=== PATIENT | female | born 1960 | race Caucasian/White ===

== ENCOUNTER 2017-09-05 08:49 | Emergency (ER) | payer BC ==
[2017-09-05 09:29] LABS: Absolute Lymphocytes (CBC) 2.6 K/uL (0.7-4.9); Absolute Monocytes 0.7 K/uL (0.1-1.3); Absolute Neutrophil 5.1 K/uL (1.8-8.0); Basophils % 0.7 % (0-1.3); Eosinophils % 0.7 % (0-4.4); Hematocrit 42.9 % (36.0-45.0); Lymphocytes % 30.7 % (15.3-44.8); MCH 30.3 pg (27.0-35.0); MCV 87.4 fL (80-100); MPV 7.3 fL (7.6-11.3); Monocytes % 8.1 % (3.3-12.3); RBC Red Blood Cell Count 4.91 M/uL (3.86-4.86)
--- NOTE | 2017-09-05 09:33 | RAD REPORT ---
EXAM DESCRIPTION: CT - Head Brain Wo Cont - 09/05/2017 9:19 am CLINICAL HISTORY: Left facial droop and numbness COMPARISON: None TECHNIQUE: Computed axial tomography of the head was obtained. IV contrast was not requested. All CT scans are performed using dose optimization technique as appropriate and may include automated exposure control or mA/KV adjustment according to patient size. FINDINGS: An intracranial bleed is not seen . The ventricles are normal in caliber. No extra-axial fluid collection is noted. A 5 millimeter low-density areas present within the right b jude ganglia. A smaller low-density areas present the left basal ganglia. Mild low-density within gato p and subcortical white matter likely represent ischemic changes secondary to small vessel disease Fluid within the sinuses/ mastoids is not seen. IMPRESSION: 5 millimeter low-density area within the right basal ganglia probably representing a lac unar infarction. The age is indeterminate. MRI is recommended. Small low-density area within the left basal ganglia has the appearance of an old lacunar infarction
[2017-09-05 09:43] LABS: Bicarbonate 26 mEq/L (21-31); Glucose Level 294 mg/dL (65-120); Potassium 3.9 mEq/L (3.6-5.0); Sodium Level 134 mEq/L (135-145)
[2017-09-05 09:44] LABS: BUN Blood Urea Nitrogen 9 mg/dL (6-20)
--- NOTE | 2017-09-05 10:16 | ER ---
Nurse's Notes [facility] Name: Sunni Mcdonald Age: 57 yrs Sex: Female : 1960 Arrival Date: 09/05/2017 Time: 08:50 Bed 6 Private MD: Diagnosis: Facial weakness;Possible Subacute ischemic stroke Presentation: 09/05 08:56 Presenting complaint: Patient states: L sided facial droop without decrease in ss sensation that began yesterday morning. Transition of care: patient was not received from another setting of care. Onset of symptoms was September 04, 2017. Care prior to arrival: None. 08:56 Method Of Arrival: Ambulatory ss 08:56 Acuity: NAYA 3 ss 11:29 An acute neurological deficit is present. Pre-hospital glucose is not applicable to la1 this patient. Stroke Activation: Symptom onset > 6 hours Physician: Stroke Attending; Name: ; Notified At: ; Arrived At: Physician: Chief Stroke Resident; Name: ; Notified At: ; Arrived At: Physician: Stroke Resident; Name: ; Notified At: ; Arrived At: Physician: ED Attending; Name: ; Notified At: ; Arrived At: Physician: ED Resident; Name: ; Notified At: ; Arrived At: Historical: - Allergies: 08:58 No Known Allergies; ss - Home Meds: 10:05 Lantus 61 Units at night Sub-Q soln [Active]; gabapentin 100 mg oral cap 1 caps daily la1 [Active]; Effexor Oral 150 mg daily [Active]; rosuvastatin 10 mg oral tab 1 tab once daily [Active]; venlafaxine 150 mg oral cp24 1 cap once daily [Active]; amlodipine 10 mg tab 1 tab once daily [Active]; glipizide 10 mg Oral tab 1 tab once daily [Active]; losartan 100 mg oral tab 1 tab once daily [Active]; - PMHx: 08:58 Diabetes - IDDM; High Cholesterol; ss - PSHx: 10:05 Left knee; right elbow; Cholecystectomy; Hysterectomy; la1 - Immunization history:: Adult Immunizations up to date. - Social history:: Smoking status: Patient/guardian denies using tobacco. - Family history:: not pertinent. - Hospitalizations: : No recent hospitalization is reported. Screenin:49 Abuse screen: Denies threats or abuse. Denies injuries from another. Nutritional ph screening: No deficits noted. Tuberculosis screening: No symptoms or risk factors identified. Fall Risk None identified. Assessment: 09:00 General: Appears in no apparent distress. comfortable, well groomed, Behavior is calm, ph cooperative, appropriate for age, Denies fever, feeling ill. Pain: Denies pain. Neuro: Level of Consciousness is awake, alert, obeys commands, Oriented to person, place, time, situation, Oxygen Equipment Technician are equal bilaterally Moves all extremities. Gait is steady, Speech is normal, Facial droop on left, Facial symmetry: tongue is midline, Pupils are PERRLA, Intact Denies weakness dizziness, headache. Cardiovascular: Denies chest pain, Capillary refill < 3 seconds in bilateral fingers Patient's skin is warm and dry. Respiratory: Airway is patent Respiratory effort is even, unlabored, Respiratory pattern is regular, symmetrical. GI: Patient currently denies. EENT: Lid(s) drooping on left eyebrow and left upper eyelid. Derm: Skin is intact, is healthy with good turgor, Skin is pink, warm \T\ dry. Musculoskeletal: Circulation, motion, and sensation intact. Range of motion: intact in all extremities. 09:00 T-PA (Activase) Screening: Contraindications: Patient reports onset of signs and ph symptoms of stroke greater than 6 hours ago: Yes. 09:46 Reassessment: ERP at bedside to speak w/ pt about CT results and possible transfer. ph 10:06 Patient has been NPO before screening. The patient is alert, and able to follow hb commands. The patient does not exhibit slurred or garbled speech. The patient is not exhibiting difficulty speaking. The patient does not exhibit difficulty understanding words. The patient is able to swallow own secretions with no drooling or need for suction. Patient tolerated one teaspoon of water. No drooling, immediate coughing, gurgling, or clearing of the throat was noted. The patient tolerated 90mL of water. No drooling, immediate coughing, gurgling, or clearing of the throat was noted. The patient passed the bedside swallow screening. Oral medications may be given as ordered. Contact Physician for further diet orders. Provider notified of bedside swallow screening results: Andrade Bradford MD. Vital Signs: 08:58 BP 172 / 101; Pulse 94; Resp 18; Temp 98.2(O); Pulse Ox 95% on R/A; Weight 68.04 kg; ss Height 5 ft. 4 in. (162.56 cm); Pain 0/10; 09:52 BP 152 / 83; Pulse 85; Resp 16; Pulse Ox 95% on R/A; la1 08:58 Body Mass Index 25.75 (68.04 kg, 162.56 cm) NIH Stroke Scale Scores: 09:00 NIHSS Score: 2 ph ED Course: 08:50 Patient arrived in ED. sb2 08:54 Andrade Bradford MD is Attending Physician. rn 08:57 Triage completed. ss 08:58 Arm band placed on right wrist. ss 09:05 Inserted saline lock: 20 gauge in right antecubital area, using aseptic technique. ph Blood collected. 09:[address] via stretcher. cw1 09:16 CT completed. Patient moved back from CT. cw1 09:17 CT Head Brain wo Cont In Process Unspecified. EDMS 09:46 Lilian Avitia, RN is Primary Nurse. ph 09:55 Patient has correct armband on for positive identification. Bed in low position. Call ph light in reach. Side rails up X 1. monitor technician on. Pulse ox on. NIBP on. Warm blanket given. 10:00 No provider procedures requiring assistance completed. ph 11:30 Patient transferred, IV remains in place. la1 Administered Medications: 10:05 Drug: Aspirin Chewable Tablet 324 mg Route: PO; hb 11:30 Follow up: Response: No adverse reaction la1 Point of Care Testing: Blood Glucose: 09:10 Blood Glucose: 271 mg/dL; ph Ranges: Outcome: 10:16 ER care complete, transfer ordered by . rn 11:30 Transferred to [facility], Transfer form completed. X-rays sent w/ la1 patient. 11:30 Condition: stable 11:30 Instructed on the need for transfer. 11:30 Patient left the ED. la1 NIH Stroke Scale - NIH Stroke Score Date: 09/05/2017 Time: 09:00 Total Score = 2 1a. Level of Consciousness (LOC) - 0(Alert) 1b. Level of Consciousness (LOC) (Year \T\ Age) - 0(Both) 1c. LOC Commands (Open \T\ Closes Eyes/Track Walker) - 0(Both) 2. Best Gaze (Lateral Gaze Paresis) - 0(Normal) 3. Visual Field Loss - 0(No visual loss) 4. Facial Palsy - 2(Partial paralysis) 5a. Left Arm: Motor (10-second hold) - 0(No drift) 5b. Right Arm: Motor (10-second hold) - 0(No drift) 6a. Left Leg: Motor (5-second hold - always test supine) - 0(No drift) 6b. Right Leg: Motor (5-second hold - always test supine) - 0(No drift) 7. Limb Ataxia (finger/nose \T\ heel/preston - test with eyes open) - 0(Absent) 8. Sensory Loss (pinprick arms/legs/face) - 0(Normal) 9. Best Language: Aphasia (description/naming/reading) - 0(No aphasia) 10. Dysarthria (speech clarity - read or repeat words) - 0(Normal) 11. Extinction and Inattention (visual/tactile/auditory/spatial/personal) - 0(No abnormality) Initials: ph Signatures: Dispatcher [employer] EDAndrade Mejia MD MD rn Smirch, Shelby, RN RN ss Woodley, Crystal cw1 Grant Morrison RN RN la1 Lilian Avitia RN RN ph Baxter, Heather, RN RN Yanci Macdonald2
--- NOTE | 2017-09-05 10:17 | EDPHYS ---
Physician Documentation [facility] Name: Sunni Mcdonald Age: 57 yrs Sex: Female : 1960 Arrival Date: 09/05/2017 Time: 08:50 Bed 6 Private MD: ED Physician Andrade Bradford HPI: 09/05 09:17 This 57 yrs old Female presents to ER via Ambulatory with complaints of S/S rn of Possible Stroke. 09:17 The patient's problem is reported as a facial droop, on left. Onset: The rn symptoms/episode began/occurred yesterday. Duration: This was a single incident. Severity of symptoms: At their worst the symptoms were moderate in the emergency department the symptoms are unchanged. The patient has not experienced similar symptoms in the past. Reports left facial droop since yesterday, constant, involves entire left face. No other focal neurological problem. . Historical: - Allergies: 08:58 No Known Allergies; ss - Home Meds: 10:05 Lantus 61 Units at night Sub-Q soln [Active]; gabapentin 100 mg oral cap 1 caps daily la1 [Active]; Effexor Oral 150 mg daily [Active]; rosuvastatin 10 mg oral tab 1 tab once daily [Active]; venlafaxine 150 mg oral cp24 1 cap once daily [Active]; amlodipine 10 mg tab 1 tab once daily [Active]; glipizide 10 mg Oral tab 1 tab once daily [Active]; losartan 100 mg oral tab 1 tab once daily [Active]; - PMHx: 08:58 Diabetes - IDDM; High Cholesterol; ss - PSHx: 10:05 Left knee; right elbow; Cholecystectomy; Hysterectomy; la1 - Immunization history:: Adult Immunizations up to date. - Social history:: Smoking status: Patient/guardian denies using tobacco. - Family history:: not pertinent. - Hospitalizations: : No recent hospitalization is reported. ROS: 09:17 Constitutional: Negative for fever, chills, and weight loss, Eyes: Negative for injury, rn pain, redness, and discharge, Neck: Negative for injury, pain, and swelling, Cardiovascular: Negative for chest pain, palpitations, and edema, Respiratory: Negative for shortness of breath, cough, wheezing, and pleuritic chest pain, Abdomen/GI: Negative for abdominal pain, nausea, vomiting, diarrhea, and constipation, MS/Extremity: Negative for injury and deformity, Skin: Negative for injury, rash, and discoloration, Neuro: Negative for headache,numbness, tingling, and seizure. Exam: 09:17 Constitutional: This is a well developed, well nourished patient who is awake, alert, rn and in no acute distress. Head/Face: Atraumatic. Eyes: Pupils equal round and reactive to light, extra-ocular motions intact. Lids and lashes normal. Conjunctiva and sclera are non-icteric and not injected. Cornea within normal limits. Periorbital areas with no swelling, redness, or edema. Neck: Trachea midline, no thyromegaly or masses palpated, and no cervical lymphadenopathy. Supple, full range of motion without nuchal rigidity, or vertebral point tenderness. No Meningismus. Cardiovascular: Regular rate and rhythm with a normal S1 and S2. No gallops, murmurs, or rubs. Normal PMI, no JVD. No pulse deficits. Respiratory: Lungs have equal breath sounds bilaterally, clear to auscultation and percussion. No rales, rhonchi or wheezes noted. No increased work of breathing, no retractions or nasal flaring. Abdomen/GI: Soft, non-tender, with normal bowel sounds. No distension or tympany. No guarding or rebound. No evidence of tenderness throughout. MS/ Extremity: Pulses equal, no cyanosis. Neurovascular intact. Full, normal range of motion. Equal circumference. Neuro: Awake and alert, GCS 15, oriented to person, place, time, and situation. + near complete left upper and lower facial droop. Motor strength 5/5 in all extremities. Sensory grossly intact. Cerebellar exam normal. Normal gait. Vital Signs: 08:58 BP 172 / 101; Pulse 94; Resp 18; Temp 98.2(O); Pulse Ox 95% on R/A; Weight 68.04 kg; ss Height 5 ft. 4 in. (162.56 cm); Pain 0/10; 09:52 BP 152 / 83; Pulse 85; Resp 16; Pulse Ox 95% on R/A; la1 08:58 Body Mass Index 25.75 (68.04 kg, 162.56 cm) NIH Stroke Scale Scores: 09:00 NIHSS Score: 2 ph MDM: 08:54 Patient medically screened. rn 09:56 Differential diagnosis: CVA, TIA, mendez's palsy. Data reviewed: vital signs, nurses rn notes, lab test result(s), radiologic studies, CT scan, and as a result, I will admit patient. Counseling: I had a detailed discussion with the patient and/or guardian regarding: the historical points, exam findings, and any diagnostic results supporting the discharge/admit diagnosis, lab results, radiology results, the need for further work-up and treatment in the hospital, the need to transfer to another facility, [facility] does not immediately have the required specialist. ED course: Pt with an area of old infarct as well as hypodense area in right basal ganglia, possible new CVA, clinically seems isolated left facial weakness, difficult to tell if has trouble speaking due to facial palsy, onset yesterday, no indication for TPA, unable to get MRI here and no neurology, will plan on transfer to [facility] for neurology w/u. . 10:15 ED course: Accepted for transfer to [facility] for neuro w/u by Dr. Glaser. . rn 09/05 09:00 Order name: CBC with Diff; Complete Time: 09:49 rn 09/05 09:00 Order name: Basic Metabolic Panel; Complete Time: 09:49 rn 09/05 09:00 Order name: CT Head Brain wo Cont; Complete Time: 09:34 rn 09/05 09:54 Order name: PT-INR rn 09/05 09:54 Order name: Ptt, Activated rn 09/05 10:36 Order name: Urine Dipstick--Ancillary (enter results) bd 09/05 09:00 Order name: IV Start; Complete Time: 09:50 rn 09/05 09:00 Order name: EKG; Complete Time: 09:00 rn 09/05 09:00 Order name: EKG - Nurse/Tech; Complete Time: 09:49 rn Administered Medications: 10:05 Drug: Aspirin Chewable Tablet 324 mg Route: PO; hb 11:30 Follow up: Response: No adverse reaction la1 Point of Care Testing: Blood Glucose: 09:10 Blood Glucose: 271 mg/dL; ph Ranges: Critical Glucose Levels:Adult <50 mg/dl or >400 mg/dl <40 mg/dl or >180 mg/dl Disposition: 09/05/17 10:16 Transfer ordered to [facility]. Diagnosis are Facial weakness, Possible Subacute ischemic stroke. - Reason for transfer: Higher level of care. - Accepting physician is Dr. Glaser. - Condition is Stable. - Problem is new. - Symptoms are unchanged. NIH Stroke Scale - NIH Stroke Score Date: 09/05/2017 Time: 09:00 Total Score = 2 1a. Level of Consciousness (LOC) - 0(Alert) 1b. Level of Consciousness (LOC) (Year \T\ Age) - 0(Both) 1c. LOC Commands (Open \T\ Closes Eyes/Cotton Broker) - 0(Both) 2. Best Gaze (Lateral Gaze Paresis) - 0(Normal) 3. Visual Field Loss - 0(No visual loss) 4. Facial Palsy - 2(Partial paralysis) 5a. Left Arm: Motor (10-second hold) - 0(No drift) 5b. Right Arm: Motor (10-second hold) - 0(No drift) 6a. Left Leg: Motor (5-second hold - always test supine) - 0(No drift) 6b. Right Leg: Motor (5-second hold - always test supine) - 0(No drift) 7. Limb Ataxia (finger/nose \T\ heel/preston - test with eyes open) - 0(Absent) 8. Sensory Loss (pinprick arms/legs/face) - 0(Normal) 9. Best Language: Aphasia (description/naming/reading) - 0(No aphasia) 10. Dysarthria (speech clarity - read or repeat words) - 0(Normal) 11. Extinction and Inattention (visual/tactile/auditory/spatial/personal) - 0(No abnormality) Initials: ph Signatures: Dispatcher [employer] EDAndrade Mejia MD MD rn Smirch, Shelby, RN RN ss Grant Morrison RN RN la1 Liliana Mahan RN RN hb
[2017-09-05] MEDS ORDERED: ASPIRIN 81 MG CHEWABLE TABLET ONE (10:23)
[2017-09-05 10:24] LABS: Protime INR 0.97
[2017-09-05 11:34] LABS: Urine Blood NEGATIVE (NEG); Urine Glucose 2+ (NEG); Urine Protein 3+ (NEG); Urine pH 6.5 (5.0-7.0)
--- NOTE | 2017-09-06 06:30 | EKG ---
Test Date: 2017-09-05 Test Time: 09:50:30 Check Grader: MEASUREMENT RESULTS: Intervals: Rate: 76 NV: 188 QRSD: 94 QT: 434 QTc: 488 [place]: P: 39 NV: 188 QRS: 7 T: 83 INTERPRETIVE STATEMENTS: Normal sinus rhythm Prolonged QT Non specific T abnormality Abnormal ECG Compared to ECG 02/10/2005 13:38:00 Prolonged QT interval now present Electronically Signed On 09-06-17 06:29:58 CDT by Sampson Aguilar
== END 2017-09-05 11:30 | disposition short-term general hospital (02) ==
LOC: ER 08:49
DX: R29.810 Facial weakness (principal); R29.702 NIHSS score 2; E11.9 Type 2 diabetes mellitus without complications; E78.00 Pure hypercholesterolemia, unspecified; Z79.4 Long term (current) use of insulin
CPT/HCPCS: 36415; 70450; 80048; 81003; 82962; 85025; 85610; 85730; 93005; 99285

== ENCOUNTER 2023-02-22 16:55 | Inpatient (IN) | payer BC ==
--- OUTSIDE RECORDS SUMMARY | 2023-02-22 16:58 | XMS REPORT | Continuity of Care Document ---
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 Social History Social Habit Start Date Stop Date Quantity Comments Source Tobacco use and 2017-09-05 2017-09-05 Smokeless [facility] exposure [facility]user [facility] Alcohol intake 2017-09-05 2017-09-[address] [facility] 00:00:00 00:00:00 non-drinker of Medical nter alcohol (finding) Sex Assigned At [address] [facility] kes 00:00:00 [facility]00 [facility] Smoking Status Start Date Stop Date Source Never smoked tobacco [facility] Medications Ordered Filled Start Stop Current Ordering Indication Dosage Frequency Signature Comments Components Source Medication Medication Date Date Medication? Clinician (SIG) Name Name insulin Yes 100U QD Inject [address] [facility] [address] glargine 4-11 Units [facility] (LANTUS) 17:46: subcutaneo Med ical 100 unit/mL 16 usly Center injection nightly Use as directed . venlafaxine Yes 150mg Q.5D Take [address] (EFFEXOR) 4-11 mg by [facility] 100 MG 17:46: mouth 2 Medical tablet 16 (two) Center times daily. amLODIPine Yes 10mg QD Take [address] (NORVASC) 4-11 by mouth [facility] 10 MG 17:46: daily. Medical tablet 16 Center losartan Yes 100mg QD Take [address] [address] (COZAAR) 4-11 mg by [facility] 100 MG 17:46: mouth Medical tablet 16 daily. Center gabapentin Yes 100mg Q.[id number] Take [address] (NEURONTIN) 4-11 [id number] mg by L ukes 100 MG 17:46: 3D mouth 3 Medical capsule 16 (three) Center times daily. atorvastati Yes 40mg QD Take [address] n (LIPITOR) 4-11 tablet (40 Zara kes 40 MG 00:00: mg total) Medical tablet 00 by mouth Center nightly. metoprolol Yes 12.5mg Q.5D Take 0.[address] (LOPRESSOR) 4-11 tablets [facility] 25 MG 00:00: (12.5 mg Medical tablet 00 total) by Center mouth 2 (two) times daily. white Yes 1{appli QD Place [address] petrolatum- 4-11 cation} applicatio [facility] mineral oil 00:00: n into the Medical (ARTIFICIAL 00 left eye Cent er TEARS) nightly. 83-15 % Oint ophthalmic ointment Procedures This patient has no known procedures. Results Test Description Test Time Test Comments Results Result Comments Source POCT-GLUCOSE METER 2017-09-08 16:48:00 Test Item Value Reference Range Interpretation Comme nts POC-GLUCOSE METER ([place]) (test 240 mg/dL 70-110 H TESTED AT [facility] [address] [facility] code = 1538) [facility] 7703 0 PET, CARDIAC PERFUSION MULTIPLE STUDIES, REST AND [id number] 16:35:00 Reason for exam:->Ischemia EvalFINAL REPORT PROCEDURE: Rest/Stress MYOCARDIAL PERFUSION PET with regadenoson\XA9\ CPT CODE: 88514 INDICATION: Ischemia evaluation HISTORY: Cardiac risk factors: Diabetes, hypertension, dyslipidemia, PVD, stroke. Other cardiovascular history: No reported CAD. Recent cardiac symptoms: Palpitations. Current cardiovascular- related medications: Aspirin, losartan, Norvasc, metoprolol.PROTOCOL: Limited low-dose CT imaging was performed for attenuation correction. 40.0 mCi of Rb-82 chloride was injected iv at rest, and gated PET (positron emission tomography) images were obtained. Subsequently, 40.0 mCi of Rb-82 chloride was injected iv at expected peak pharmacologic effect, and gated PET images were obtained. PRELIMINARY STRESS TEST DATA FROM NONINVASIVE CARDIOLOGY: Pharmacologic stress was by 10-second iv infusion of 0.4 mg of regadenoson. Radiotracer was injected 30 seconds after start of stress. Heart rate was 76 beats/min at rest and 110 beats/min (67% of MPHR) at tracer injection. BP was 141/70 mmHg at rest and 147/74 mmHg at tracer injection. Stress was stopped for predetermined endpoint. The patient experienced dyspnea; treatment was not required. Preliminary ECG evaluation revealed sinus rhythm at rest and no ischemic changes with stress. (Final ECG interpretation andother stress and monitoring data are reported separately by Cardiology.) IMAGING FINDINGS: Study quality is good. Images obtained after rest and stress injections show normal LV activity. LV and RV vol umes appear normal. Gated images obtained at rest and with stress show normal LV wall motion and thickening. LVEF at rest is 56%. LVEF at stress is 58%. IMPRESSION: 1. Normal study. 2. Appropriate pharmacologic stress. 3. Normal myocardial perfusion. 4. Normal resting LV function. Note [id number]. 5. Normal extracardiac tracer distribution. 6. No previous [facility] study for comparison. NONINVASIVE RISK STRATIFICATION: The above findings are considered low risk (<1% annual mortality rate) based on the following criterion:- Normal or small myocardial perfusion defect at rest or with stress(JACC. 2012;59(9):857-81.) Signed: Haleigh Summers Verified Date/Time: 09/08/2017 16:35:51 Reading Location: [id number] [facility] Reading Room POCT- GLUCOSE [id number] 11:49:00 Test Item Value Reference Range Interpretation Comments POC-GLUCOSE METER 98 mg/dL 70-110 TESTED AT [place] [address] ([facility]) (test code = MARK Wheeler [facility] [address] 1538) POCT-GLUCOSE [id number] 07:31:00 Test Item Value Reference Range Interpretation Comments POC-GLUCOSE METER 120 mg/dL 70-110 H TESTED AT [place] [address] ([facility]) (test code = MARK Wheeler [facility] 1538) [address] POCT-GLUCOSE [id number] 22:58:00 Test Item Value Reference Range Interpretation Comments POC-GLUCOSE METER 282 mg/dL 70-110 H TESTED AT [place] [address] ([facility]) (test code = [address] [facility] 1538) [address] POCT-GLUCOSE [id number] 19:04:00 Test Item Value Reference Range Interpretation Comments POC-GLUCOSE METER 347 mg/dL 70-110 H Notified Summer Lorenzo MD/TESTED ([facility]) (test code = AT [address] 1538) [facility] 7[address] POCT-GLUCOSE [id number] 16:20:00 Test Item Value Reference Range Interpretation Comments POC-GLUCOSE METER 330 mg/dL 70-110 H TESTED AT [place] [address] ([facility]) (test code = MARK Wheeler [facility] 1538) [address] POCT-GLUCOSE [id number] 11:40:00 Test Item Value Reference Range Interpretation Comments POC-GLUCOSE METER 303 mg/dL 70-110 H Notified Summer Lorenzo MD/TESTED ([facility]) (test code = AT [address] 1538) [facility] [address] 0 POCT-GLUCOSE [id number] 08:06:00 Test Item Value Reference Range Interpretation Comments POC-GLUCOSE METER 239 mg/dL 70-110 H TESTED AT [place] [address] ([facility]) (test code = MARK Wheeler [facility] 1538) [address] POCT-GLUCOSE [id number] 21:20:00 Test Item Value Reference Range Interpretation Comments POC-GLUCOSE METER 377 mg/dL 70-110 H TESTED AT [facility] 67[address] ([place]) (test code = [place] 1539) [address] MR, MRA, BRAIN, WITHOUT [id number] 20:27:00Reason for exam:->Ischemic Stroke EvaluationFINAL REPORT MRA brain and neck without contrast 09/06/2017 8:14 PM CLINICAL HISTORY: StrokeIschemic Stroke Evaluation. 2017: 122: 117-121. COMPARISON: None available TECHNIQUE: Two-and three- dimensional [id number] MRA images of the intra- and extracranial arterial vasculature was performed, from which maximal intensity projection 3-D reconstructions were created. FINDINGS: MRA neck: There is no vessel occlusion or flow-limiting stenosis. There is no NASCET-quantifiable cervical internal carotid artery stenosis. Flow is antegrade in both vertebral arteries. MRA [place]: There is no vessel occlusion. There is high-grade stenosis in the left vertebral artery. IMPRESSION: 1. Unremarkable extracranial MRA.2. High- grade intracranial left vertebral artery stenosis. Signed: William Beebe Verified Date/Time: 09/06/2017 20:27:38 Reading Location: [address] Neuro Reading Room MR, MRA, NECK, WITHOUT IV [id number] 20:27:00Reason for exam:->Ischemic Stroke EvaluationFINAL REPORT MRA brain and neck without contrast 09/06/2017 8:14 PM CLINICAL HISTORY: StrokeIschemic Stroke Evaluation. 2017: 122: 117-121. COMPARISON: None available TECHNIQUE: Two- and three-dimensional [id number]-[id number] MRA images of the intra- and extracranial arterial vasculaturewas performed, from which maximal intensity projection 3-D reconstructions were created. FINDINGS: MRA neck: There is no vessel occlusion or flow-limiting stenosis. There is no NASCET-quantifiable cervical internal carotid artery stenosis. Flow is antegrade in both vertebral arteries. MRA [place]: There is no vessel occlusion. There is high- grade stenosis in the left vertebral artery. IMPRESSION: 1. Unremarkable extracranial MRA.2. High-grade intracranial left vertebral artery stenosis. Sign ed: William Beebe Verified Date/Time: 09/06/2017 20:27:38 Reading Location: [address] Neuro Reading Room MR, BRAIN, WITHOUT [id number] 20:02:00Reason for exam:->Ischemic Stroke EvaluationFINAL REPORT MRI brain without contrast 09/06/2017 8:00 PM CLINICAL INDICATION: St rokeIschemic Stroke Evaluation. 2017: 122: 117-121. TECHNIQUE: Multiplanar, multisequence MR imagingof the brain was performed utilizing the following imaging sequences: Axial T1, T2, FLAIR, GRE, and DWI; sagittal and coronal T1- weighted images. COMPARISON: None available FINDINGS: There is no acute infarct, hematoma, mass, extra-axial collection, or hydrocephalus. There is moderately advanced chronic microvascular ischemia in the supratentorial white matter, deep lewis nuclei, and jurgen. There is generalized parenchymal volume loss. Normal appearing flow-voids are present in the major intracranial vascular structures. The sellar and pineal regions are normal. The craniovertebral junction is intact . The orbits, face, and skull base are without worrisome finding. IMPRESSION: Chronic microvascular ischemia. No acute intracranial abnormality. Signed: William Beebe Verified Date/Time: 09/06/2017 20:02:57 Reading Location: [address] Neuro Reading Room POCT-GLUCOSE [id number] 16:50:00 Test Item Value Reference Range Interpretation Comments POC-GLUCOSE METER 348 mg/dL 70-110 H Notified Summer Lorenzo MD/TESTED (BEAKER) (test code = AT [facility] [address] [facility] 1538) [facility] 7[address] 0 HEMOGLOBIN [id number] 11:53:00 Test Item Value Reference Range Interpretation Comments HEMOGLOBIN A1C (BEAKER) (test code = 15.3 % 4.3-6.1 H 368) URINALYSIS W/ [id number] 08:54:00 Test Item Value Reference Range Interpretation Comments COLOR (BEAKER) (test code = 470) Yellow CLARITY (BEAKER) (test code = 469) Clear SPECIFIC GRAVITY UA (BEAKER) (test 1.011 1.001-1.035 code = 468) PH UA (BEAKER) (test code = 467) 6.5 5.0-8.0 PROTEIN UA (BEAKER) (test code = 300 mg/dL Negative A 464) GLUCOSE UA (BEAKER) (test code = 500 mg/dL Negative A 365) KETONES UA (BEAKER) (test code = Negative Negative 371) BILIRUBIN UA (BEAKER) (test code = Negative Negative 462) BLOOD UA (BEAKER) (test code = 461) Negative Negative NITRITE UA (BEAKER) (test code = Negative Negative 465) LEUKOCYTE ESTERASE UA (BEAKER) Trace Negative A (test code = 466) UROBILINOGEN UA (BEAKER) (test code 0.2 mg/dL 0.2-1.0 = 463) RBC UA (BEAKER) (test code = 519) 0 /HPF WBC UA (BEAKER) (test code = 520) 0 /HPF MUCUS (BEAKER) (test code = 1574) Rare SQUAMOUS EPITHELIAL (BEAKER) (test 3 /HPF code = 516) SOURCE(BEAKER) (test code = 2795) POCT-GLUCOSE [id number] 07:46:00 Test Item Value Reference Range Interpretation Comments POC-GLUCOSE METER 274 mg/dL 70-110 H TESTED AT [facility] 67[address] (BEAKER) (test code = [address] [place] 1538) [address] BASIC METABOLIC [id number] 06:49:00 Test Item Value Reference Range Interpretation Comments SODIUM (BEAKER) 137 meq/L 136-145 (test code = 381) POTASSIUM (BEAKER) 4.2 meq/L 3.5-5.1 (test code = 379) CHLORIDE (BEAKER) 107 meq/L 98-107 (test code = 382) CO2 (BEAKER) (test 22 meq/L 22-29 code = 355) BLOOD UREA NITROGEN 7 mg/dL 7-21 (BEAKER) (test code = 354) CREATININE (BEAKER) 0.61 mg/dL 0.57-1.25 (test code = 358) GLUCOSE RANDOM 250 mg/dL 70-105 H (BEAKER) (test code = 652) CALCIUM (BEAKER) 8.7 mg/dL 8.4-10.2 (test code = 697) EGFR ([facility]) (test 101 mL/min/1.73 ESTIM ATED GFR IS code = 1092) sq m NOT ACCURATE CREATININE CLEARANCE IN PREDICTING GLOMERULAR FILTRATION RATE . ESTIMATED GFR I S NOT APPLICABLE FOR DIALYSIS PATIEN TS. FastingLIPID [id number] 06:49:00 Test Item Value Reference Range Interpretation Comments TRIGLYCERIDES ([employer]) (test code = 526 mg/dL 540) CHOLESTEROL ([employer]) (test code = 330 mg/dL 631) HDL CHOLESTEROL ([employer]) (test code 36 mg/dL = 976) Calculated LDL not valid if triglyceride >400 mg/dLTriglyceride Reference Range: Low Risk <150 Borderline 150-199 High Risk 200-499 Very High Risk >=500Cholesterol Reference Range: Low Risk <200 Borderline 200-239 High Risk >240HDL Cholesterol Reference Range: Low Risk >=60 High Risk <40LDL Cholesterol Reference Range: Optimal <100 Near Optimal 100-129 Borderline 130-159 High 160-189 Very High >=190 [id number] 04:01:00 Test Item Value Reference Range Interpretation Comments RPR SCREEN ([employer]) (test code = Nonreactive Nonreactive 420) POCT-GLUCOSE [id number] 21:29:00 Test Item Value Reference Range Interpretation Comments POC-GLUCOSE METER 215 mg/dL 70-110 H TESTED AT [facility] 67[address] ([facility]) (test code = [facility] 1538) [address] POCT-GLUCOSE [id number] 17:18:00 Test Item Value Reference Range Interpretation Comments POC-GLUCOSE METER 156 mg/dL 70-110 H TESTED AT [facility] 67[address] ([facility]) (test code = [facility] 1538) [address] TSH/FREE T4 IF [id number] 16:15:00 Test Item Value Reference Range Interpretation Comments THYROID STIMULATING HORMONE 0.73 uIU/mL 0.35-4.94 ([employer]) (test code = 772) VITAMIN B12 AND [id number] 16:15:00 Test Item Value Reference Range Interpretation Comments VITAMIN B12 ([employer]) (test code = 509 pg/mL 213-816 774) FOLATE (BEAKER) (test code = 362) 15.2 ng/mL >=7.0 BASIC METABOLIC [id number] 15:39:00 Test Item Value Reference Range Interpretation Comments SODIUM (BEAKER) 138 meq/L 136-145 (test code = 381) POTASSIUM (BEAKER) 4.0 meq/L 3.5-5.1 Specimen moderately (test code = 379) hemolyzed CHLORIDE (BEAKER) 105 meq/L 98-107 (test code = 382) CO2 (BEAKER) (test 25 meq/L 22-29 code = 355) BLOOD UREA NITROGEN 8 mg/dL 7-21 (BEAKER) (test code = 354) CREATININE (BEAKER) 0.57 mg/dL 0.57-1.25 Specimen moderately (test code = 358) hemolyzed GLUCOSE RANDOM 177 mg/dL 70-105 H (BEAKER) (test code = 652) CALCIUM (BEAKER) 9.0 mg/dL 8.4-10.2 (test code = 697) EGFR (BEAKER) (test 109 mL/min/1.73 ESTIM ATED GFR IS code = 1092) sq m NOT ACCURATE CREATININE CLEARANCE IN PREDICTING GLOMERULAR FILTRATION RATE . ESTIMATED GFR I S NOT APPLICABLE FOR DIALYSIS PATIEN TS. CBC W/PLT COUNT & AUTO [id number] 14:25:00 Test Item Value Reference Range Interpretation Comments WHITE BLOOD CELL COUNT (BEAKER) 9.1 K/ L 3.5-10.5 (test code = 775) RED BLOOD CELL COUNT (BEAKER) 4.67 M/ L 3.93-5.22 (test code = 761) HEMOGLOBIN (BEAKER) (test code = 14.3 GM/DL 11.2-15.7 410) HEMATOCRIT (BEAKER) (test code = 40.2 % 34.1-44.9 411) MEAN CORPUSCULAR VOLUME (BEAKER) 86.1 fL 79.4-94.8 (test code = 753) MEAN CORPUSCULAR HEMOGLOBIN 30.6 pg 25.6-32.2 (BEAKER) (test code = 751) MEAN CORPUSCULAR HEMOGLOBIN CONC 35.6 GM/DL 32.2-35.5 H (BEAKER) (test code = 752) RED CELL DISTRIBUTION WIDTH 12.0 % 11.7-14.4 (BEAKER) (test code = 412) PLATELET COUNT (BEAKER) (test 203 K/CU MM 150-450 code = 756) MEAN PLATELET VOLUME (BEAKER) 9.8 fL 9.4-12.3 (test code = 754) NUCLEATED RED BLOOD CELLS 0 /100 WBC 0-0 (BEAKER) (test code = 413) NEUTROPHILS RELATIVE PERCENT 52 % (BEAKER) (test code = 429) LYMPHOCYTES RELATIVE PERCENT 38 % (BEAKER) (test code = 430) MONOCYTES RELATIVE PERCENT 8 % (BEAKER) (test code = 431) EOSINOPHILS RELATIVE PERCENT 1 % (BEAKER) (test code = 432) BASOPHILS RELATIVE PERCENT 1 % (BEAKER) (test code = 437) NEUTROPHILS ABSOLUTE COUNT 4.77 K/ L 1.56-6.13 (BEAKER) (test code = 670) LYMPHOCYTES ABSOLUTE COUNT 3.48 K/ L 1.18-3.74 (BEAKER) (test code = 414) MONOCYTES ABSOLUTE COUNT (BEAKER) 0.71 K/ L 0.24-0.36 H (test code = 415) EOSINOPHILS ABSOLUTE COUNT 0.06 K/ L 0.04-0.36 (BEAKER) (test code = 416) BASOPHILS ABSOLUTE COUNT (BEAKER) 0.07 K/ L 0.01-0.08 (test code = 417) IMMATURE GRANULOCYTES-RELATIVE 0 % 0-1 PERCENT (BEAKER) (test code = 2801) POCT-GLUCOSE [id number] 13:17:00 Test Item Value Reference Range Interpretation Comments POC-GLUCOSE METER 211 mg/dL 70-110 H TESTED AT [facility] 6720 (BEAKER) (test code = [address] [place] 1538) [address]
[2023-02-22] MEDS ORDERED: IPRATROPIUM BROM 0.5MG/2.5ML ONE (17:28)
[2023-02-22] MEDS ORDERED: LEVALBUTEROL 1.25 MG/3 ML NEB ONE (17:28)
[2023-02-22] MEDS ORDERED: METHYLPREDNISOLONE 125 MG INJ ONE (17:28)
[2023-02-22] MEDS ORDERED: MAGNESIUM SULFATE 1 gm IVPB 1 GM/100 ML BAG IV ONE (17:28)
[2023-02-22 17:30] LABS: Absolute Lymphocytes (CBC) 2.8 K/uL (0.7-4.9); Hematocrit 34.9 % (36.0-45.0); Lymphocytes % 15.3 % (15.3-44.8); MCV 97.1 fL (80-100); MPV 7.5 fL (7.6-11.3); Platelets 396 thou/uL (152-406)
--- NOTE | 2023-02-22 17:33 | RAD REPORT ---
EXAM DESCRIPTION: David Single View02/22/2023 5:23 pm CLINICAL HISTORY: DYSPNEA COMPARISON: CHEST PA AND LAT 2 VIEW dated 05/16/2012; CHEST PA AND LAT 2 VIEW dated 02/10/2005 TECHNIQUE: Portable AP view of the chest. FINDINGS: Central predominant fluffy opacities and interstitial thickening. Possible small effusions . No pneumothorax . Mild cardiomegaly. Mediastinal contours are unremarkable. IMPRESSION: Findings suggestive of central pulmonary edema as above.
[2023-02-22 17:37] LABS: Protime INR 0.95
[2023-02-22 17:52] LABS: Potassium 3.9 mEq/L (3.5-5.1); Troponin High Sensitivity 27.8 pg/mL (<58.9)
[2023-02-22] MEDS ORDERED: FUROSEMIDE 40 MG/4 ML VIAL ONE (18:21)
[2023-02-22] MEDS ORDERED: NA CHLORIDE 0.9% 100 ML ONE (18:21)
[2023-02-22] MEDS ORDERED: CEFTRIAXONE 1000 MG/VIAL ONE (18:21)
[2023-02-22] MEDS ORDERED: NA CHLORIDE 0.9% 250 ML ONE (18:21)
[2023-02-22] MEDS ORDERED: AZITHROMYCIN 500 MG INJ IVPB ONE (18:21)
--- NOTE | 2023-02-22 19:39 | RAD REPORT ---
EXAM DESCRIPTION: CT - Chest For Pe Angio - 02/22/2023 7:10 pm CLINICAL HISTORY: DYSPNEA COMPARISON: Chest Single View dated 02/22/2023 TECHNIQUE: Thin axial CT images of the chest were obtained following administration of 100 mL Isovue 370 IV contrast. Multiplanar reconstructions, and maximum intensity projection reconstructions were generated and reviewed. Exam utilizes a protocol for optimal evaluation of pulmonary arterial tree. All CT scans are performed using dose optimization technique as appropriate and may include automated exposure control or mA/KV adjustment according to patient size. FINDINGS: Pulmonary arteries are normal. No emboli or other suspicious finding. No acute or signific ant aorta findings. Mild cardiomegaly. Central interstitial prominence and bronchovascular wall thickening. Moderate bila teral layering effusions, with underlying dependent segmental atelectasis. No mass or infiltrate in t he lung parenchyma. No pleural thickening. No pneumothorax. No abnormal mediastinal or hilar masses or lymphadenopathy seen. No chest wall mass or abnormal axill iary lymphadenopathy. IMPRESSION: No evidence of acute central pulmonary emboli. Changes of pulmonary edema with moderate bilateral layering effusions. Mild cardiomegaly.
--- NOTE | 2023-02-22 20:01 | ER ---
Nurse's Notes [facility] Name: Sunni Mcdonald Age: 63 yrs Sex: Female : 1960 Arrival Date: 02/22/2023 Time: 16:55 Bed 14 Private MD: Diagnosis: Acute pulmonary edema;Hypoxemia;Unspecified combined systolic (congestive) and diastolic (congestive) heart failure Presentation: 02/22 17:04 Chief complaint: Patient states: she has been feeling short of breath for approx 3 ap3 days. Coronavirus screen: At this time, the client does not indicate any symptoms associated with coronavirus-19. Ebola Screen: No symptoms or risks identified at this time. Initial Sepsis Screen: Does the patient meet any 2 criteria? No. Patient's initial sepsis screen is negative. Does the patient have a suspected source of infection? No. Patient's initial sepsis screen is negative. Risk Assessment: Do you want to hurt yourself or someone else? Patient reports no desire to harm self or others. Onset of symptoms was February 19, 2023. 17:04 Method Of Arrival: Ambulatory ap3 17:04 Acuity: NAYA 2 ap3 17:06 Note patient placed on 4 liters 02 in triage. SP02 recovered to 91%. ap3 Triage Assessment: 17:06 General: Appears ill, Behavior is cooperative. Pain: Denies pain. Neuro: Level of ap3 Consciousness is awake, alert, obeys commands, Oriented to person, place, time, situation. Cardiovascular: Patient's skin is warm and dry. Respiratory: Reports shortness of breath Airway is patent Onset: The symptoms/episode began/occurred gradually. Historical: - Allergies: 17:06 No Known Allergies; ap3 - PMHx: 17:06 Diabetes - IDDM; High Cholesterol; ap3 - Immunization history:: Client reports receiving the 2nd dose of the Covid vaccine. - Social history:: Smoking status: Patient denies any tobacco usage or history of. - Family history:: not pertinent. - Hospitalizations: : No recent hospitalization is reported. Assessment: 17:11 General: Appears distressed, uncomfortable, Behavior is cooperative, anxious. Pain: rs5 Denies pain. Neuro: Level of Consciousness is awake, alert, obeys commands, Oriented to person, place, time, situation. Cardiovascular: Denies chest pain, Heart tones S1 S2 present Rhythm is regular. Respiratory: Breath sounds with crackles bilaterally. Respiratory: Reports shortness of breath at rest Airway is patent Respiratory effort is even, labored, Respiratory pattern is symmetrical, tachypnea. GI: Abdomen is round non-distended, Bowel sounds present X 4 quads. Abd is soft and non tender X 4 quads. : No signs and/or symptoms were reported regarding the genitourinary system. EENT: No signs and/or symptoms were reported regarding the EENT system. Derm: Skin is pink, warm \T\ dry. 17:11 Musculoskeletal: Range of motion: intact in all extremities. rs5 17:50 Reassessment: Patient states symptoms have not improved. SOB has not improved, MD davison notified. . 17:55 Reassessment: RT at bedside placing pt on Bi-PAP. aa5 18:05 Reassessment: Bi-Pap settings IPAP: 12, EPAP: 6, FIO2: 40%. rs5 18:08 Reassessment: Pt tolerating Bi-PAP well. . aa5 18:59 Reassessment: Report given to nurse NATALIO Horn. rs5 Vital Signs: 17:04 Pulse 83; Resp 25; Temp 98.5; Pulse Ox 80% ; ap3 17:06 Pulse Ox 91% on 4 lpm NC; ap3 17:15 BP 213 / 110; Pulse 83; Resp 32 S; Pulse Ox 95% on 4 lpm NC; aa5 17:40 BP 202 / 87; Pulse 78; Resp 33 S; Pulse Ox 96% on Nebulizer Mask; aa5 18:00 BP 204 / 83; Pulse 78; Resp 22; Pulse Ox 97% on BiPAP; rs5 18:25 BP 174 / 125; Pulse 77; Resp 24; Pulse Ox 97% on BiPAP; rs5 18:40 BP 179 / 79; Pulse 78; Resp 75; Pulse Ox 98% on BiPAP; rs5 17:15 MD aware of elevated BP aa5 ED Course: 16:58 Patient arrived in ED. im 17:01 Andrade Bradford MD is Attending Physician. rn 17:05 Triage completed. ap3 17:07 Inserted saline lock: 20 gauge in left antecubital area, using aseptic technique. Blood ap3 collected. 17:12 Kade Persaud, NATALIO is Primary Nurse. rs5 17:24 Initial lab(s) drawn, by me, sent to lab. aa5 17:25 XRAY CXR (1 view) In Process Unspecified. EDMS 17:35 First set of blood cultures drawn by me. aa5 17:37 COVID swab sent to lab. Flu and/or RSV swab sent to lab. aa5 18:00 Beasley cath inserted, using sterile technique, 16 Fr., by me, balloon inflated, to aa5 gravity drainage. 18:10 Inserted saline lock: 18 gauge in right hand, using aseptic technique. rs5 19:12 CT Chest For PE Angio In Process Unspecified. EDMS 19:59 Jaden Bradford MD is Hospitalizing Provider. rn Administered Medications: 17:27 Drug: MethylPrednisoLONE IVP 125 mg IVP once Route: IVP; Site: left antecubital; rs5 17:45 Follow up: Response: No adverse reaction rs5 17:27 Drug: Levalbuterol Inhalation 1.25 mg Inhalation once Route: Inhalation; rs5 17:45 Follow up: Response: No adverse reaction rs5 17:27 Drug: Ipratropium Inhalation Aerosol 0.5 mg Inhalation once Route: Inhalation; rs5 17:45 Follow up: Response: No adverse reaction rs5 17:27 Drug: Magnesium Sulfate IVPB 1 grams IVPB once over 1 hrs Route: IVPB; Infused Over: 1 rs5 hrs; Site: left antecubital; 17:45 Follow up: Response: No adverse reaction rs5 21:10 Follow up: IV Status: Completed infusion; IV Intake: 100ml bp 18:24 Drug: Furosemide IVP 40 mg IVP once; give over 2 minutes Route: IVP; Site: left rs5 antecubital; 23:18 Follow up: Response: No adverse reaction bp 18:24 Drug: Rocephin IV 1 grams IV at calculated rate once; Given slow IV push per pharmacy rs5 instructions Route: IV; Rate: calculated rate; Site: right hand; 18:42 Follow up: Response: No adverse reaction rs5 21:10 Follow up: IV Status: Completed infusion; IV Intake: 100ml bp 18:24 Drug: Zithromax IVPB 500 mg IVPB once over 1 hrs; mix in 250 mL NS Route: IVPB; Infused rs5 Over: 1 hrs; Site: right hand; 18:42 Follow up: Response: No adverse reaction rs5 21:10 Follow up: IV Status: Completed infusion; IV Intake: 250ml bp 21:15 Drug: Furosemide IVP 20 mg IVP once; give over 2 minutes, in addition to previous 40mg bp dose Route: IVP; Site: right hand; 22:01 Follow up: Response: No adverse reaction bp Intake: 21:10 IV: 100ml; Total: 100ml. bp 21:10 IV: 100ml; Total: 200ml. bp 21:10 IV: 250ml; Total: 450ml. bp Output: 19:23 Urine: 800ml (Beasley); Total: 800ml. rs5 Outcome: 20:00 Decision to Hospitalize by Provider. rn 23:19 Patient left the ED. bp Signatures: Dispatcher [employer] EDMS Andrade Bradford MD MD rn Calderon, Audri RN RN aa5 Kory Etienne RN RN bp Mamta Drummond RN RN ap3 Kade Persaud RN RN rs5 Diane Herrera Corrections: (The following items were deleted from the chart) 18:49 18:28 BP 204 / 83; Pulse 78bpm; Resp 22bpm; Pulse Ox 96%; rs5 rs5
--- NOTE | 2023-02-22 20:01 | EDPHYS ---
Physician Documentation [facility] Name: Sunni Mcdonald Age: 63 yrs Sex: Female : 1960 Arrival Date: 02/22/2023 Time: 16:55 Bed 14 Private MD: ED Physician Andrade Bradford HPI: 02/22 17:12 This 63 yrs old Female presents to ER via Ambulatory with complaints of Shortness Of rn Breath. 17:12 The patient has shortness of breath at rest. Onset: The symptoms/episode began/occurred rn 2 day(s) ago. Duration: The symptoms are continuous. The patient's shortness of breath is aggravated by exertion, light activity. Associated signs and symptoms: Pertinent positives: non-productive cough, Pertinent negatives: fever, hemoptysis. Severity of symptoms: At their worst the symptoms were moderate in the emergency department the symptoms are unchanged. The patient has not experienced similar symptoms in the past. The patient has not recently seen a physician. Patient reports shortness of breath over the last 2 days. No fever. Reports emphysema from secondhand smoke. O2 sat was 80% on room air. No recent medication. No trauma. No history of DVT or PE.. Historical: - Allergies: 17:06 No Known Allergies; ap3 - PMHx: 17:06 Diabetes - IDDM; High Cholesterol; ap3 - Immunization history:: Client reports receiving the 2nd dose of the Covid vaccine. - Social history:: Smoking status: Patient denies any tobacco usage or history of. - Family history:: not pertinent. - Hospitalizations: : No recent hospitalization is reported. ROS: 17:12 Constitutional: Negative for fever, chills, and weight loss, Eyes: Negative for injury, rn pain, redness, and discharge, Neck: Negative for injury, pain, and swelling, Cardiovascular: Negative for chest pain, palpitations, and edema, Respiratory: Positive for cough and shortness of breath, positive for wheezing Abdomen/GI: Negative for abdominal pain, nausea, vomiting, diarrhea, and constipation, MS/Extremity: Negative for injury and deformity, Skin: Negative for injury, rash, and discoloration, Neuro: Positive for generalized weakness and malaise Exam: 17:12 Constitutional: This is a well developed, well nourished patient who is awake, alert, rn moderate respiratory distress Head/Face: Normocephalic, atraumatic. ENT: No stridor Cardiovascular: Regular rate and rhythm. No pulse deficits. Respiratory: WithModerate tachypnea wheezing diffusely throughout, no retractions MS/ Extremity: Pulses equal, no cyanosis. Neurovascular intact. Full, normal range of motion. Equal circumference. Neuro: Awake and alert, GCS 15 20:26 ECG was reviewed by the Attending Physician. rn Vital Signs: 17:04 Pulse 83; Resp 25; Temp 98.5; Pulse Ox 80% ; ap3 17:06 Pulse Ox 91% on 4 lpm NC; ap3 17:15 BP 213 / 110; Pulse 83; Resp 32 S; Pulse Ox 95% on 4 lpm NC; aa5 17:40 BP 202 / 87; Pulse 78; Resp 33 S; Pulse Ox 96% on Nebulizer Mask; aa5 18:00 BP 204 / 83; Pulse 78; Resp 22; Pulse Ox 97% on BiPAP; rs5 18:25 BP 174 / 125; Pulse 77; Resp 24; Pulse Ox 97% on BiPAP; rs5 18:40 BP 179 / 79; Pulse 78; Resp 75; Pulse Ox 98% on BiPAP; rs5 17:15 MD aware of elevated BP aa5 MDM: 17:01 Patient medically screened. rn 17:09 ED course: Patient 80% O2 on room room air.. rn 19:58 Differential diagnosis: Bronchitis CHF exacerbation, Chronic Obstructive Pulmonary rn Disease Myocardial Infarction pneumonia, Pneumothorax pulmonary edema, Pulmonary Embolism. Data reviewed: vital signs, nurses notes, lab test result(s), EKG, radiologic studies, CT scan, plain films, and as a result, I will admit patient. Consideration of Admission/Observation Patient was admitted/placed on observation. Escalation of care including admission/observation considered. Independent interpretation of the following test(s) in the Emergency Department X-Ray: My interpretation is Chest x-ray positive for pulmonary edema and bilateral pleural effusions. Improved markedly on BiPAP. Will admit to hospitalist service for further diuresis.. Counseling: I had a detailed discussion with the patient and/or guardian regarding the historical points, exam findings, and any diagnostic results supporting the discharge/admit diagnosis, lab results, radiology results, the need for further work-up and treatment in the hospital. Response to treatment: the patient's symptoms have markedly improved after treatment, and as a result, I will admit patient. ED course: I personally spent 35 minutes engaged in work directly related to the individual patient's care. This does not include any time spent performing procedures. The patient has been deemed critically ill because of hypoxemia, bilateral pleural effusions and need for BiPAP. 02/22 17:06 Order name: BMP; Complete Time: 18:02 02/22 17:06 Order name: Blood Culture Adult (2) 02/22 17:06 Order name: CBC with Diff; Complete Time: 17:45 02/22 17:06 Order name: NT PRO-BNP; Complete Time: 18:02 02/22 17:06 Order name: PT-INR; Complete Time: 17:45 02/22 17:06 Order name: Ptt, Activated; Complete Time: 17:45 02/22 17:06 Order name: Troponin HS; Complete Time: 18:02 02/22 17:07 Order name: Lactate w/ 2H reflex if indic.; Complete Time: 18:03 02/22 17:07 Order name: SARS-COV-2 RT PCR; Complete Time: 18:31 02/22 17:07 Order name: Flu; Complete Time: 18:19 02/22 17:48 Order name: Glucose, Ancillary Testing; Complete Time: 18:02 [facility] 02/22 20:53 Order name: Lactate Sepsis 2 HR Follow-up [facility] 02/22 17:06 Order name: CT Chest For PE Angio; Complete Time: 20:20 02/22 17:06 Order name: XRAY CXR (1 view); Complete Time: 17:45 02/22 17:46 Order name: BIPAP 02/22 17:06 Order name: EKG; Complete Time: 17:07 02/22 17:06 Order name: Cardiac monitoring; Complete Time: 17:28 02/22 17:06 Order name: EKG - Nurse/Tech; Complete Time: 17:27 02/22 17:06 Order name: IV Saline Lock; Complete Time: 17:19 02/22 17:06 Order name: Labs collected and sent; Complete Time: 17:28 02/22 17:06 Order name: O2 Per Protocol; Complete Time: 17:28 02/22 17:06 Order name: O2 Sat Monitoring; Complete Time: 17:28 rn 02/22 18:04 Order name: Gale: CEDRICK received at 1750; Complete Time: 18:04 aa5 EC:26 Rate is 83 beats/min. Rhythm is irregular. Right axis deviation noted. QRS is positive rn in lead aVF and negative in lead I. [place] interval is normal. QRS interval is normal. T waves are Inverted in leads V5, V6. No ST changes noted. Clinical impression: NSR w/ Non-specific ST/T Changes. Interpreted by me. Reviewed by me. Administered Medications: 17:27 Drug: MethylPrednisoLONE IVP 125 mg IVP once Route: IVP; Site: left antecubital; rs5 17:45 Follow up: Response: No adverse reaction rs5 17:27 Drug: Levalbuterol Inhalation 1.25 mg Inhalation once Route: Inhalation; rs5 17:45 Follow up: Response: No adverse reaction rs5 17:27 Drug: Ipratropium Inhalation Aerosol 0.5 mg Inhalation once Route: Inhalation; rs5 17:45 Follow up: Response: No adverse reaction rs5 17:27 Drug: Magnesium Sulfate IVPB 1 grams IVPB once over 1 hrs Route: IVPB; Infused Over: 1 rs5 hrs; Site: left antecubital; 17:45 Follow up: Response: No adverse reaction rs5 21:10 Follow up: IV Status: Completed infusion; IV Intake: 100ml bp 18:24 Drug: Furosemide IVP 40 mg IVP once; give over 2 minutes Route: IVP; Site: left rs5 antecubital; 23:18 Follow up: Response: No adverse reaction bp 18:24 Drug: Rocephin IV 1 grams IV at calculated rate once; Given slow IV push per pharmacy rs5 instructions Route: IV; Rate: calculated rate; Site: right hand; 18:42 Follow up: Response: No adverse reaction rs5 21:10 Follow up: IV Status: Completed infusion; IV Intake: 100ml bp 18:24 Drug: Zithromax IVPB 500 mg IVPB once over 1 hrs; mix in 250 mL NS Route: IVPB; Infused rs5 Over: 1 hrs; Site: right hand; 18:42 Follow up: Response: No adverse reaction rs5 21:10 Follow up: IV Status: Completed infusion; IV Intake: 250ml bp 21:15 Drug: Furosemide IVP 20 mg IVP once; give over 2 minutes, in addition to previous 40mg bp dose Route: IVP; Site: right hand; 22:01 Follow up: Response: No adverse reaction bp Disposition Summary: 02/22/23 20:00 Hospitalization Ordered Notes: Hospitalization Status: Inpatient Admission rn Provider: Jaden Bradford rn Location: Telemetry/MedSurg (Inpatient) rn Condition: Stable rn Problem: new rn Symptoms: have improved rn Bed/Room Type: Standard rn Room Assignment: 402(02/22/23 21:05) mw Diagnosis - Acute pulmonary edema rn - Hypoxemia rn - Unspecified combined systolic (congestive) and diastolic (congestive) heart failure rn Forms: - Medication Reconciliation Form rn - SBAR form rn - Leadership Thank You Letter rn Signatures: Dispatcher [employer] EDMS Lexii Feldman RN RN Andrade Sanderson MD MD rn Calderon, Audri RN RN aa5 Grant Morrison, TAX MAP TECHNICIAN-C TAX MAP TECHNICIAN-Cla1 Kory Etienne RN RN Mamta Kaye RN RN ap3 Kade Persaud RN RN rs5 Corrections: (The following items were deleted from the chart) 21:05 20:00 rn mw
--- NOTE | 2023-02-22 21:31 | P.HP ---
Certification for Inpatient Patient admitted to: Inpatient With expected LOS: >2 Midnights Patient will require the following post-hospital care: None Practitioner: I am a practitioner with admitting privileges, knowledge of patient current condition, hospital course, and medical plan of care. Services: Services provided to patient in accordance with Admission requirements found in Title 42 Section 412.3 of the Code of Federal Regulations Patient History Date of Service: 02/22/23 Reason for admission: New onset CHF History of Present Illness: 63-year-old female with history of insulin-dependent diabetes, hyperlipidemia, emphysema presents to the emergency department with shortness of breath. She reports that her shortness of breath began approximately 2 days ago was feeling normal before that, denied any dyspnea on exertion, orthopnea, chest pain or other similar symptoms. She noted beginning to feel short of breath 2 days ago became worse earlier today after receiving an intraocular injection. She was evaluated in the emergency department and found to be significantly dyspneic, her labs are significant for leukocytosis white blood cell count 18 hemoglobin 9.7 Lopez crit 34.9 bicarb 18 BUN 22 glucose 201 lactic acid 2.5 downtrending to 1.5 BNP 1300 CTA of the chest was performed to rule out pulmonary embolism which was significant for no evidence of acute central pulmonary emboli. Changes of pulmonary edema with moderate bilateral layering effusions. Mild cardiomegaly. Patient with no known history of congestive heart failure reports she had an echocardiogram in 2018 that as far she knows was normal, has never had a heart catheterization before. Initial high- sensitivity 1 and negative. EKG without STEMI criteria present. Patient chest pain-free cardiac BiPAP at this time she was given Lasix in the emergency department as well as started on antibiotics given her leukocytosis. Allergies No Known Allergies Allergy (Unverified 09/05/17 11:34) - Past Medical/Surgical History -: Insulin-dependent diabetes -: Hypertension -: Hyperlipidemia -: Hysterectomy -: Cholecystectomy -: Elbow surgery Psychosocial/ Personal History: Lives at home with family - Family History Brother -: Heart disease - Social History Smoking Status: Never smoker Alcohol use: No CD- Drugs: No Caffeine use: Yes Place of Residence: Home Review of Systems 10-point ROS is otherwise unremarkable Respiratory: Cough, Shortness of Breath, SOB with Excertion Physical Examination - Vital Signs Pulse: 77 Pulse Ox (%): 99 - Physical Exam General: Alert, In no apparent distress, Oriented x3 HEENT: Atraumatic, PERRLA, Mucous membr. moist/pink, EOMI, Sclerae nonicteric Neck: Supple, 2+ carotid pulse no bruit, No LAD, Without JVD or thyroid abnormality Respiratory: Diminished, Crackles/rales, Rhonchi/gurgles Cardiovascular: Regular rate/rhythm, Normal S1 S2, Edema (Trace edema lower extremities) Capillary refill: <2 Seconds Gastrointestinal: Normal bowel sounds, No tenderness Musculoskeletal: No tenderness Integumentary: No rashes Neurological: Normal speech, Normal strength at 5/5 x4 extr, Normal tone, Normal affect - Studies Laboratory Data (last 24 hrs) 02/22/23 02/22/23 02/22/23 17:24 17:24 17:24 WBC 18.00 H Hgb 11.7 L Hct 34.9 L Plt Count 396 PT 10.4 INR 0.95 APTT 36.7 Sodium 136 Potassium 3.9 BUN 22 H Creatinine 1.02 Glucose 201 H Microbiology Data (last 24 hrs): 02/22/23 17:38 Nasopharnyx Influenza Type A Antigen Screen - Final 02/22/23 17:38 Nasopharnyx Influenza Type B Antigen Screen - Final Assessment and Plan - Plan Assessment: Acute hypoxic respiratory failure Suspected new onset CHFunknown EF Diabetes mellitus type 2insulin-dependent Hypertension Hyperlipidemia Plan: Acute hypoxic respiratory failure Suspected new onset CHFunknown EF Denies chest pain, will trend troponins, monitor telemetry, obtain echocardiogram and cardiology consult. Continue diuresis with IV Lasix. Continue BiPAP as needed. Doing well on BiPAP at this time states symptoms have improved. White blood cell count elevated, will cover with empiric Rocephin for now, no source infection identified thus far. Will obtain UA, procalcitonin levels. Appreciate further input from cardiology. Patient has not had an ischemic work-up. Diabetes mellitus type 2insulin-dependent ACHS Accu-Chek, sliding scale insulin, A1c in the morning. Hypertension Obtain and continue home medications Hyperlipidemia Obtain and continue home medications DVT PPX: Lovenox Code status: Full Discharge Plan: Home Plan to discharge in: 72 Hours - Advance Directives Does patient have a Living Will: No Does patient have a Durable POA for Healthcare: No - Code Status/Comfort Care Code Status Assessed: Yes (Full code) Critical Care: No Time Spent Managing Pts Care (In Minutes): 70
[2023-02-22] MEDS ORDERED: ONDANSETRON 4 MG/2 ML VIAL IV PRN (21:50)
[2023-02-22] MEDS ORDERED: FUROSEMIDE 20 MG/ 2ML VIAL ONE (22:06)
[2023-02-23 00:06] VITALS: BMI 24.9
[2023-02-23 07:06] LABS: Hematocrit 29.8 % (36.0-45.0); Lymphocytes % 9.4 % (15.3-44.8); MCV 95.1 fL (80-100); MPV 7.1 fL (7.6-11.3); Platelets 331 thou/uL (152-406); RBC Red Blood Cell Count 3.14 M/uL (3.86-4.86)
[2023-02-23 07:37] LABS: C-Reactive Protein 19.3 mg/L (<3.00); Magnesium 1.9 mg/dL (1.6-2.4); Potassium 3.2 mEq/L (3.5-5.1); Thyroid Stimulating Hormone 0.465 uIU/mL (0.358-3.740); Troponin High Sensitivity 33.2 pg/mL (<58.9)
[2023-02-23] MEDS: ASPIRIN EC 81 MG TAB PO SCH (08:46)
[2023-02-23] MEDS: FUROSEMIDE 40 MG/4 ML VIAL IV SCH ×2 (08:47→16:32)
[2023-02-23] MEDS: ENOXAPARIN 40 MG/0.4 ML SQ SCH (08:48)
[2023-02-23] MEDS ORDERED: LOSARTAN POTASSIUM 50 MG TABLET PO SCH (09:00)
[2023-02-23] MEDS: INSULIN -REGULAR HUMAN 50 UNIT/0.5 ML ML SQ SCH ×4 (09:04→20:18)
--- NOTE | 2023-02-23 12:36 | P.PN ---
Subjective Date of Service: 02/23/23 Chief Complaint: New onset CHF Patient is slightly better still complaining of sugar shortness of breath has congestive heart failure Review of Systems General: Weakness Respiratory: Shortness of Breath Physical Examination - Vital Signs Temperature: 99.2 F Blood Pressure: 201/98 Pulse: 95 Respirations: 18 Pulse Ox (%): 96 - Physical Exam General: Alert, Oriented x3, Mild distress Respiratory: Crackles/rales Cardiovascular: No edema, Regular rate/rhythm, Normal S1 S2 - Studies Laboratory Data (last 24 hrs) 02/22/23 02/22/23 02/22/23 17:24 17:24 17:24 WBC 18.00 H Hgb 11.7 L Hct 34.9 L Plt Count 396 PT 10.4 INR 0.95 APTT 36.7 Sodium 136 Potassium 3.9 BUN 22 H Creatinine 1.02 Glucose 201 H Microbiology Data (last 24 hrs): 02/22/23 17:38 Nasopharnyx Influenza Type A Antigen Screen - Final 02/22/23 17:38 Nasopharnyx Influenza Type B Antigen Screen - Final Assessment And Plan - Current Problems (Diagnosis) (1) Congestive heart failure Current Visit: Yes Status: Acute Plan: Patient is 63 years of age with diabetes hypertension admitted with worsening shortness of breath cardiomegaly interstitial changes strongly suspect that she has new onset congestive heart failure and to control her blood pressure agree with Lasix add spironolactone echocardiogram pending cardiac consultation DC BiPAP Qualifiers: Heart failure chronicity: unspecified
[2023-02-23] MEDS: SPIRONOLACTONE 25 MG TABLET PO SCH ×2 (12:57→20:17)
[2023-02-23] MEDS: ACETAMINOPHEN 325 MG TABLET PO PRN (12:58)
[2023-02-23] MEDS: AMLODIPINE 10 MG TAB PO SCH (12:58)
[2023-02-23] MEDS: HYDRALAZINE HCL 20 MG/ML VIAL IV PRN ×3 (12:59→20:19)
--- NOTE | 2023-02-23 13:02 | EKG ---
Test Date: 2023-02-22 Test Time: 20:23:07 Director Of Managed Services: LILIA MEASUREMENT RESULTS: Intervals: Rate: 83 NJ: 176 QRSD: 110 QT: 432 QTc: 507 [place]: P: 60 NJ: 176 QRS: 102 T: 0 INTERPRETIVE STATEMENTS: Sinus rhythm with premature atrial complexes Rightward axis Possible Anterior infarct, age undetermined ST & T wave abnormality, consider inferolateral ischemia Abnormal ECG Compared to ECG 09/05/2017 09:50:30 Atrial premature complex(es) now present Right-axis deviation now present Myocardial infarct finding now present ST (T wave) deviation now present Possible ischemia now present Prolonged QT interval no longer present T-wave abnormality no longer present Electronically Signed On 02-23-23 13:01:13 CDT by Gael Dominguez
--- NOTE | 2023-02-23 13:26 | ECHO ---
HEIGHT: 5 ft 4 in WEIGHT: 145 lb 0 oz DATE OF STUDY: 02/23/[address]: Grant Morrison NP 2-DIMENSIONAL: YES M.MODE: YES DOPPLER: YES COLOR FLOW: YES TDS: PORTABLE: YES DEFINITY: BUBBLE STUDY: DIAGNOSIS: NEW ONSET CONGESTIVE HEART FAILURE CARDIAC HISTORY: CATHERIZATION: SURGERY: PROSTHETIC VALVE: PACEMAKER: MEASUREMENTS (cm) DIASTOLIC (NORMALS) SYSTOLIC (NORMALS) IVSd 0.9 (0.6-1.2) LA Diam 3.4 (1.9-4.0) LVEF 56% LVIDd 4.6 (3.5-5.7) LVIDs 3.3 (2.0-3.5) %FS 29% LVPWd 1.4 (0.6-1.2) Ao Diam 2.4 (2.0-3.7) 2 DIMENSIONAL ASSESSMENT: RIGHT ATRIUM: NORMAL LEFT ATRIUM: NORMAL RIGHT VENTRICLE: NORMAL LEFT VENTRICLE: NORMAL TRICUSPID VALVE: MILD TRICUSPID REGURGITATION MITRAL VALVE: MITRAL ANNULAR CALCIFICATION WITH MILD MITRAL STENOSIS AND MITRAL REGURGITATION PULMONIC VALVE: NORMAL AORTIC VALVE: MILD AORTIC INSUFFICIENCY PERICARDIAL EFFUSION: NONE AORTIC ROOT: NORMAL LEFT VENTRICULAR WALL MOTION: NORMAL DOPPLER/COLOR FLOW: SEE BELOW COMMENTS: 1. NORMAL LEFT VENTRICULAR EJECTION FRACTION 55-60% WITH NORMAL WALL MOTION 2. MODERATE DIASTOLIC DYSFUNCTION 3. MITRAL ANNULAR CALCIFICATION WITH MILD MITRAL STENOSIS AND MODERATE MITRAL REGURGITATION 4. MILD TRICUSPID REGURGITATION 5. MODERATE PULMONARY HYPERTENSION WITH RIGHT VENTRICULAR SYSTOLIC PRESSURE OF 50-55 mmHg TECHNOLOGIST: SANTOSH JAMES
[2023-02-23] MEDS ORDERED: CEFTRIAXONE 1,000 MG in NA CHLORIDE 0.9% 50 ML IVPB SCH (18:00)
--- NOTE | 2023-02-23 19:44 | CON ---
Date of Consultation: 02/23/2023 Reason For Consultation: Heart failure. History Of Present Illness: A 63-year-old female with history of diabetes, dyslipidemia, and COPD, p resented with worsening shortness of breath and orthopnea for about 2 days, has shortness of breath o n exertion and now became at rest. She claimed that she took an intraocular injection recently and s nisha then she has been having difficulty breathing with significant orthopnea. Past Medical History: As outlined above in HPI. Medications: Refer to reconciliation sheet for detailed list. Allergies: NO KNOWN DRUG ALLERGIES. Family History: No mention of coronary artery disease or cancer. Social History: Does not smoke or drink. Does not use any drugs. Review of Systems: All systems reviewed. They were negative except as mentioned in the HPI. Physical Examination: Vital Signs: Show temperature is 99.6, pulse 92, breathing at 18, blood pressure 210/92, saturating 97%. General: Pleasant middle-aged female, in no apparent distress. Head and Neck: Pupils are equal, reactive to light. Intact eye movements. Positive JVD. No cervic al lymphadenopathy. Neck is supple. Thyroid is not enlarged. Lungs: Decreased breathing sounds with faint crackles in the bases. No accessory muscle use or musc le retraction. Heart: Regular. No extra sounds. Abdomen: Soft and nontender. Bowel sounds positive. No organomegaly. No masses or hernia. No rig idity or rebound. Extremities: Edema bilaterally. No clubbing or cyanosis. Intact pulses. Skin: No rash. Neurologic: Alert, awake, oriented x3. No acute focal deficits appreciated. Investigations: An echo; normal EF, moderate diastolic dysfunction, and moderate pulmonary hypertens ion with RVSP of 50-[address] chest did not show any PE, but she had a pulmonary edema. Assessment And Recommendation: 1.Acute on chronic diastolic heart failure exacerbation. Definitely overloaded with fluids and she has a significant diastolic dysfunction on echo and right ventricular systolic pressure is elevated. Agree with Lasix 40 mg IV b.i.d. and Aldactone and monitor BUN and creatinine and electrolytes caref ully and also, she needs a better blood pressure control. I believe her blood pressure will improve after an aggressive diuresis. 2.Dyslipidemia. Continue statin. 3.Hypertension. Blood pressure is uncontrolled and medications being adjusted. We will monitor. I expect improvement with diuresis. SR/MODL Voice ID: [id number] Report ID: [id number]
[2023-02-23] MEDS ORDERED: MELATONIN 5 MG TABLET PO PRN (20:31)
[2023-02-23] MEDS ORDERED: ATORVASTATIN 40 MG TAB PO SCH (21:00)
[2023-02-24] MEDS: HYDRALAZINE HCL 20 MG/ML VIAL IV PRN (05:04)
[2023-02-24 06:53] LABS: Absolute Lymphocytes (CBC) 1.7 K/uL (0.7-4.9); Hematocrit 32.2 % (36.0-45.0); Lymphocytes % 11.9 % (15.3-44.8); MPV 7.3 fL (7.6-11.3); Platelets 369 thou/uL (152-406); RBC Red Blood Cell Count 3.35 M/uL (3.86-4.86)
[2023-02-24 07:06] LABS: Magnesium 1.9 mg/dL (1.6-2.4)
[2023-02-24] MEDS ORDERED: POTASSIUM 25 MEQ EFFERV TAB PO ONE (07:51)
--- NOTE | 2023-02-24 07:55 | P.DS ---
Admission Date: 02/22/23 Discharge Date: 02/24/23 Disposition: ROUTINE DISCHARGE Discharge Condition: GOOD Reason for Admission: New onset CHF - Problems (1) Congestive heart failure Current Visit: Yes Status: Acute Qualifiers: Heart failure chronicity: unspecified Brief History of Present Illness: Patient is 63 years of age with a history of hypertension diabetes admitted with shortness of breath and heart failure Hospital Course: Patient was admitted to the hospital did well was diuresed aggressively at the time of discharge alert oriented responsive cooperative no shortness of breath blood pressure is little elevated voice chest clear Labs reviewed mildly hypokalemic I suspect secondary to diuretics/echocardiogram as below some diastolic heart failure with secondary pulmonary hypertension/patient will be discharged home on spironolactone and Lasix To follow-up with cardiology/on examination comfortable chest clear system heart sounds normal NORMAL LEFT VENTRICULAR EJECTION FRACTION 55-60% WITH NORMAL WALL MOTION 2. MODERATE DIASTOLIC DYSFUNCTION 3. MITRAL ANNULAR CALCIFICATION WITH MILD MITRAL STENOSIS AND MODERATE MITRAL REGURGITATION 4. MILD TRICUSPID REGURGITATION 5. MODERATE PULMONARY HYPERTENSION WITH RIGHT VENTRICULAR SYSTOLIC PRESSURE OF 50-55 mmHg flu and COVID were both negative Vital Signs/Physical Exam: Temp Pulse Resp BP Pulse Ox 97.2 F 95 H 28 H 201/84 H 96 02/24/23 04:00 02/24/23 05:29 02/24/23 04:00 02/24/23 04:00 02/24/23 05:29 Laboratory Data at Discharge: WBC 14.70 thou/uL (4.3-10.9) H 02/24/23 06:27 Hgb 11.4 g/dL (12.0-15.0) L D 02/24/23 06:27 Hct 32.2 % (36.0-45.0) L 02/24/23 06:27 Plt Count 369 thou/uL (152-406) 02/24/23 06:27 PT 10.4 SECONDS (9.5-12.5) 02/22/23 17:24 INR 0.95 02/22/23 17:24 APTT 36.7 SECONDS (24.3-36.9) 02/22/23 17:24 Sodium 138 mEq/L (136-145) 02/24/23 06:27 Potassium 3.0 mEq/L (3.5-5.1) L 02/24/23 06:27 BUN 20 mg/dL (7-18) H 02/24/23 06:27 Creatinine 1.14 mg/dL (0.55-1.02) H 02/24/23 06:27 Glucose 295 mg/dL (74-106) H 02/24/23 06:27 Magnesium 1.9 mg/dL (1.6-2.4) 02/24/23 06:27 Home Medications: Amlodipine [Norvasc*] 10 mg PO DAILY 02/23/23 Ergocalciferol (Vitamin D2) [Vitamin D 50,000 Unit Cap] 50,000 units PO EVERY 7TH DAY 02/23/23 Insulin Detemir [Levemir Flexpen] 60 units SQ DAILY 02/23/23 Losartan Potassium 100 mg PO DAILY 02/23/23 Metformin HCl 1,000 mg PO DAILY 02/23/23 Metoprolol Tartrate 100 mg PO BID 02/23/23 Rosuvastatin [Crestor*] 10 mg PO DAILY 02/23/23 Venlafaxine HCl [Venlafaxine HCl ER] 150 mg PO DAILY 02/23/23 cloNIDine HCL [Clonidine HCl] 0.1 mg PO DAILY 02/23/23 glipiZIDE [Glipizide] 10 mg PO DAILY 02/23/23 Furosemide [Lasix] 20 mg PO DAILY 30 Days #30 tab 02/24/23 Spironolactone [Aldactone*] 25 mg PO BID 30 Days #60 tab 02/24/23 New Medications: Spironolactone [Aldactone*] 25 mg PO BID 30 Days #60 tab Furosemide [Lasix] 20 mg PO DAILY 30 Days #30 tab Physician Discharge Instructions: Strict fluid intake drink only if necessary added salt diet Diet: ADA Followup: Jonel Ambrose MD [Primary Care Provider] - Gael Dominguez MD [ACTIVE - CAN ADMIT] -
[2023-02-24] MEDS: ENOXAPARIN 40 MG/0.4 ML SQ SCH (08:17)
[2023-02-24] MEDS: FUROSEMIDE 40 MG/4 ML VIAL IV SCH (08:18)
[2023-02-24] MEDS: AMLODIPINE 10 MG TAB PO SCH (08:18)
[2023-02-24] MEDS: SPIRONOLACTONE 25 MG TABLET PO SCH (08:19)
[2023-02-24] MEDS: ACETAMINOPHEN 325 MG TABLET PO PRN (08:19)
[2023-02-24] MEDS: ASPIRIN EC 81 MG TAB PO SCH (08:19)
[2023-02-24] MEDS: INSULIN -REGULAR HUMAN 50 UNIT/0.5 ML ML SQ SCH (08:36)
[2023-02-24] MEDS ORDERED: MAGNESIUM SULFATE 1 gm IVPB 1 GM/100 ML BAG IV ONE (09:00)
[2023-02-24] MEDS ORDERED: POTASSIUM CL SA 10 MEQ TAB PO ONE (09:00)
[2023-02-24] MEDS ORDERED: LOSARTAN POTASSIUM 50 MG TABLET PO SCH (09:00)
[2023-02-24 09:05] VITALS: O2SAT 95
[2023-02-24 11:32] VITALS: BP 160/78; TEMP 98.7
== END 2023-02-24 11:30 | disposition home or self-care (01) | DRG 291 ==
LOC: ER 16:55 → 4TH 21:03
PROVIDERS: ADMIT Internal Medicine; ATTEND Internal Medicine Sleep Medicine
PROC: 5A09357 Assistance with Respiratory Ventilation, Less than 24 Consecutive Hours, Continuous Positive Airway Pressure (ICD-10-PCS; principal; 2023-02-23)
DX: I11.0 Hypertensive heart disease with heart failure (principal); I50.33 Acute on chronic diastolic (congestive) heart failure; J96.01 Acute respiratory failure with hypoxia; J43.9 Emphysema, unspecified; E11.9 Type 2 diabetes mellitus without complications; I27.20 Pulmonary hypertension, unspecified; E78.00 Pure hypercholesterolemia, unspecified; I08.3 Combined rheumatic disorders of mitral, aortic and tricuspid valves; Z79.4 Long term (current) use of insulin; Z77.22 Contact with and (suspected) exposure to environmental tobacco smoke (acute) (chronic); Z90.710 Acquired absence of both cervix and uterus; Z20.822 Contact with and (suspected) exposure to COVID-19
CPT/HCPCS: 36415; 51702; 71045; 71275; 80048; 82947; 83036; 83605; 83735; 83880; 84145; 84439; 84443; 84484; 85025; 85610; 85730; 86140; 87040; 87635; 87804; 93005; 93306; 94660; 94760; 99285; J0360; J0696; J1650; J1815; J1940; J2930; J3475; J7050; J7614; J7644; Q9967